=== PATIENT | female | born 1985 | race Caucasian/White ===

== ENCOUNTER 2016-12-01 15:04 | Emergency (ER) | payer OTHER ==
[~2016-12-01] VITALS: Ht 162.6 cm; Wt 79.8 kg
[~2016-12-01 15:04] MED LIST: CARA1TAB2 PO; CELE20TA PO; CIPR500T4 PO; CLON1 PO; LORT5TAB PO; METR-1 PO; OMEP20CA5 PO
[2016-12-01 15:26] VITALS: BP 117/76; PULSE 108; RESP 16; TEMP 99.1; O2SAT 97
[2016-12-01] MEDS ORDERED: XANA1TAB2 PO (15:56)
[2016-12-01] MEDS ORDERED: METH5TAB PO (15:56)
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
[2016-12-01 16:43] LABS: AUTOMATED NEUTROPHIL # 3.6 TH/MM3 (1.8-7.7); BASOPHIL % 0.4 % (0.0-2.0); EOSINOPHIL # 0.1 TH/MM3 (0-0.4); EOSINOPHIL % 1.1 % (0.0-4.0); HEMATOCRIT 32.8 % (35.0-46.0); HEMO FLAGS DIFF FINAL; LYMPH % 27.6 % (9.0-44.0); LYMPHOCYTE # 1.5 TH/MM3 (1.0-4.8); MEAN CELL VOLUME 88.1 FL (80.0-100.0); MEAN CORPUSCULAR HEMOGLOBIN 30.4 PG (27.0-34.0); MEAN CORPUSCULAR HGB CONC 34.5 % (32.0-36.0); MONO % 6.2 % (0.0-8.0); NEUT % 64.7 % (16.0-70.0); PLATELET COUNT 237 TH/MM3 (150-450); RED BLOOD COUNT 3.73 MIL/MM3 (4.00-5.30); RED CELL DISTRIBUTION WIDTH 11.9 % (11.6-17.2); WHITE BLOOD COUNT 5.5 TH/MM3 (4.0-11.0)
[2016-12-01 16:48] LABS: BLOOD, URINE NEG (NEG); GLUCOSE,URINE NEG (NEG); KETONE, URINE NEG (NEG); NITRITE,URINE NEG (NEG)
[2016-12-01 16:56] LABS: COMMENT (UR) CULT NOT INDICATED; CULTURE IF INDICATED CULT NOT INDICATED; URINE COLOR YELLOW (YELLW/STRAW); WBC, URINE 0-2 /hpf (0-5)
[2016-12-01 17:15] LABS: BETA HCG QUANT 29178 MIU/ML (0-5)
[2016-12-01 17:16] VITALS: BP 136/87
== END 2016-12-01 17:18 | disposition home or self-care (01) ==
LOC: PHED 15:04
DX: O26.892 Other specified pregnancy related conditions, second trimester (principal); R10.30 Lower abdominal pain, unspecified; Z86.59 Personal history of other mental and behavioral disorders; Z87.39 Personal history of other diseases of the musculoskeletal system and connective tissue; Z3A.16 16 weeks gestation of pregnancy
CPT/HCPCS: 81001; 84702; 85025; 99284

== ENCOUNTER → 2017-02-15 | Outpatient (CLI) | payer MEDICAID ==
[~2017-02-15] MED LIST changes: +ACYC-101 PO; -CARA1TAB2 PO; -CELE20TA PO; -CIPR500T4 PO; -CLON1 PO; -LORT5TAB PO; -METR-1 PO; -OMEP20CA5 PO; +XANA1TAB2 PO
== END ==
LOC: HPND 11:59
PROVIDERS: ATTEND Obstetrics & Gynecology
DX: O34.592 Maternal care for other abnormalities of gravid uterus, second trimester (principal); O99.342 Other mental disorders complicating pregnancy, second trimester; O99.212 Obesity complicating pregnancy, second trimester; E66.9 Obesity, unspecified; O09.32 Supervision of pregnancy with insufficient antenatal care, second trimester; O43.192 Other malformation of placenta, second trimester; Z68.30 Body mass index [BMI] 30.0-30.9, adult
CPT/HCPCS: 76816

== ENCOUNTER 2017-04-20 11:05 | Inpatient (IN) | payer MEDICAID ==
[~2017-04-20] VITALS: Ht 162.6 cm; Wt 86.2 kg
[2017-04-20] VITALS (38 sets, daily range): BP systolic 94–164; BP diastolic 50–107; PULSE 66–131; RESP 13–18; TEMP 97.9–99.6
[~2017-04-20 11:05] MED LIST changes: +PREN1TAB63; -XANA1TAB2 PO
[2017-04-20] MEDS ORDERED: LACTATED RINGER'S 1000 ML INJ 1,000 ML IV SCH (12:21)
[2017-04-20] MEDS ORDERED: ONDANSETRON HCL 4 MG/2 ML VIAL IV PUSH PRN (12:30)
[2017-04-20] MEDS ORDERED: ACETAMINOPHEN 325 MG TAB PO PRN (12:30)
[2017-04-20] MEDS ORDERED: CALCIUM GLUCONATE 10% 1 GM/10 ML VIAL IV PUSH PRN (12:30)
[2017-04-20] MEDS ORDERED: LORazepam 2 MG/ML VIAL IM PRN (12:30)
[2017-04-20] MEDS ORDERED: OXYTOCIN 30 UNITS-500ML PREMIX 500 ML IV SCH (12:30)
[2017-04-20] MEDS ORDERED: SODIUM CHLORIDE 0.9% FLUSH 10 ML FLUSH IV FLUSH PRN (12:30)
[2017-04-20] MEDS ORDERED: CITRIC ACID-SODIUM CITRATE LIQ 30 ML UDC PO SCH (12:45)
[2017-04-20] MEDS ORDERED: SODIUM CHLORID 0.9% 500 ML INJ 500 ML IV PRN (12:45)
[2017-04-20] MEDS ORDERED: LIDOCAINE HCL 1% 50 ML VIAL INFIL PRN (12:45)
[2017-04-20] MEDS ORDERED: MINERAL OIL 10 ML VIAL TOPICAL PRN (12:45)
[2017-04-20] MEDS ORDERED: OXYTOCIN 30 UNITS-500ML PREMIX 500 ML IV ONE (12:45)
[2017-04-20] MEDS ORDERED: LIDOCAINE HCL 1% 50 ML VIAL I-DERMAL PRN (12:45)
[2017-04-20] MEDS ORDERED: PENICILLIN G POTASSIUM INJ 5,000,000 UNITS in SODIUM CHLORIDE 0.9% INJ 100 ML IV SCH (13:00)
[2017-04-20] MEDS ORDERED: LACTATED RINGER'S 1000 ML INJ 1,000 ML IV PRN (13:00)
[2017-04-20] MEDS ORDERED: SODIUM CHLOR 0.9% 1000 ML INJ 1,000 ML IV PRN (13:01)
--- NOTE | 2017-04-20 13:04 | PD ---
HPI Chief Complaint Vaginal bleeding Travel History International Travel<30 Days: No Contact w/Intl Traveler<30Days: No Known Affected Area: No History of Present Illness HPI Patient is a 32 y/o female @35/2 weeks who presents with vaginal bleeding since this AM. States she felt that her water broke yesterday, has noted blood and continued leakage of fluid this morning. Blood is enough to fill a thin pad and noted it in the toilet and on wiping. Endorses movement, tanner every 3 minutes with only slight pain. Is RH positive. No hx of bleeding with , no recent trauma or intercourse. History Past Medical History Narrative Medical anxiety - takes 0.5 clonipine Obstetric History Obstetric History 2004 female born 4lbs @37 weeks via vaginal delivery. No complications 2 Abortions induced at 5 weeks Family History Family History: Negative Social History Alcohol Use: No Tobacco Use: No Substance Abuse: No Allergies-Medications (Allergen,Severity, Reaction): Coded Allergies: No Known Allergies (Verified , 04/18/17) Home Meds Active Scripts Acyclovir (Zovirax) 800 Mg Tab, 800 MG PO DAILY for Mgmt Viral Infection, #90 TAB 3 Refills Prov:Adalberto Fernandez MD 01/25/17 Reported Medications Multivit-Min W/Fe-FA ( Vitamins 0.8 mg) 1 Tab Tab 04/18/17 Physical Exam Narrative GENERAL: Well-nourished, well-developed patient. SKIN: Warm and dry. HEAD: Normocephalic and atraumatic. EYES: No scleral icterus. No injection or drainage. ENT: deferred CARDIOVASCULAR: Regular rate and rhythm without murmurs, gallops, or rubs. RESPIRATORY: Breath sounds equal bilaterally. No accessory muscle use. ABDOMEN/GI: Abdomen soft, non-tender Gravid to 35 weeks size GENITOURINARY: External Genitalia: intact and normal in appearance Cervix: midline Dilatation: 0 Effacement: 0 Membranes: ruptured Uterine Contractions: 1-3 min, mild FHT's: Category: 1 Baseline: 145 Reactive: yes Variability: moderate Decels: variable EXTREMITIES: No cyanosis or edema. NEUROLOGICAL: Awake and alert. Motor and sensory grossly within normal limits. Data Data Orders Orders Admit To Inpatient (04/20/17 ) Vital Signs (Adult) Q4H (04/20/17 12:21) Activity Bed Rest (04/20/17 12:21) Heart (04/20/17 12:21) Diet Regular Basic (04/20/17 Lunch) Lactated Ringer's 1000 Ml Inj (Lr 1000 M (04/20/17 12:21) Sodium Chloride 0.9% Flush (Ns Flush) (04/20/17 12:30) Sodium Chloride 0.9% Flush (Ns Flush) (04/20/17 21:00) Betamethasone Inj (Celestone Soluspan In (04/20/17 12:30) Penicillin G Potassium Inj (Pfizerpen-G (04/20/17 12:30) Penicillin G Potassium Inj (Pfizerpen-G (04/20/17 16:30) Calcium Gluconate Inj (Calcium Gluconate (04/20/17 12:30) Acetaminophen (Tylenol) (04/20/17 12:30) Ondansetron Inj (Zofran Inj) (04/20/17 12:30) Group B Beta Strep Scrn (Gbs) (04/20/17 12:21) Urinalysis - C+S If Indicated (04/20/17 12:21) Lorazepam Inj (Ativan Inj) (04/20/17 12:30) ^ Non Stress Test (04/20/17 12:24) Response To Medication .Post New Med Administration, Reaction (04/20/17 12:24) ^ Discontinue Medication (04/20/17 12:24) Oxytocin 30 Units-500ml Premix (Pitocin (04/20/17 12:30) Ob (2e) Additional Admit Info (04/20/17 12:37) Ob/Psych Drug Screen, Urine (04/20/17 12:40) Code Status (04/20/17 12:41) Vital Signs (Adult) .Per protocol (04/20/17 12:41) Activity Oob Ad Sherrie (04/20/17 12:41) Heart (04/20/17 12:41) Amnioinfusion (04/20/17 12:41) Urinary Catheter Management .ONCE (04/20/17 12:41) Lactated Ringer's 1000 Ml Inj (Lr 1000 M (04/20/17 12:41) Lactated Ringer's 1000 Ml Inj (Lr 1000 M (04/20/17 12:41) Sodium Chlorid 0.9% 500 Ml Inj (Ns 500 M (04/20/17 12:45) Sodium Chlor 0.9% 1000 Ml Inj (Ns 1000 M (04/20/17 13:01) Lidocaine 1% Inj (50 Ml) (Xylocaine 1% I (04/20/17 12:45) Citric Acid-Sodium Citrate Liq (Bicitra (04/20/17 12:45) Ondansetron Inj (Zofran Inj) (04/20/17 12:45) Fentanyl Inj (Fentanyl Inj) (04/20/17 12:45) Fentanyl Inj (Fentanyl Inj) (04/20/17 12:45) Complete Blood Count With Diff (04/20/17 12:41) Hold Clot (04/20/17 12:41) Abo/Rh Blood Type (04/20/17 12:41) Resp Oxygen Non Rebreathe Mask (04/20/17 ) ^ Epidural / Intrathecal Infus (04/20/17 12:41) Oxytocin 30 Units-500ml Premix (Pitocin (04/20/17 12:45) Lidocaine 1% Inj (50 Ml) (Xylocaine 1% I (04/20/17 12:45) Light Mineral Oil (Muri-Lube Oil) (04/20/17 12:45) MDM Interpretation(s) Patient is a 32 y/o @ 35/2 weeks admitted for PPROM and suspected marginal abruption. Plan -IVF -administer penicillin prophy -betamethasone x2 for lung maturity -oxytocin for labor induction - anticipate vaginal delivery - continue to monitor SWDW Dr. Anderson Xiong,Katiana Corley MD R1 Apr 20, 2017 13:04
[2017-04-20] MEDS ORDERED: BETAMETHASONE SOD PHOS/ACETATE SUSP 30 MG/5 ML VIAL IM SCH (13:30)
[2017-04-20] MEDS ORDERED: CLON.5 PO (13:45)
[2017-04-20] MEDS: LACTATED RINGER'S 1000 ML INJ 1,000 ML IV SCH ×3 (14:00→21:00)
[2017-04-20 15:08] LABS: AUTOMATED NEUTROPHIL # 6.4 TH/MM3 (1.8-7.7); BASOPHIL % 0.3 % (0.0-2.0); EOSINOPHIL # 0.1 TH/MM3 (0-0.4); EOSINOPHIL % 0.6 % (0.0-4.0); HEMATOCRIT 41.5 % (35.0-46.0); HEMO FLAGS DIFF FINAL; LYMPHOCYTE # 2.1 TH/MM3 (1.0-4.8); MEAN CELL VOLUME 88.7 FL (80.0-100.0); MEAN CORPUSCULAR HEMOGLOBIN 29.7 PG (27.0-34.0); MEAN CORPUSCULAR HGB CONC 33.5 % (32.0-36.0); MONO % 5.9 % (0.0-8.0); NEUT % 70.2 % (16.0-70.0); PLATELET COUNT 240 TH/MM3 (150-450); RED BLOOD COUNT 4.68 MIL/MM3 (4.00-5.30); RED CELL DISTRIBUTION WIDTH 12.9 % (11.6-17.2)
[2017-04-20 15:20] LABS: BLOOD, URINE MOD (NEG); COMMENT (UR) CULTURE INDICATED; CULTURE IF INDICATED CULTURE INDICATED; GLUCOSE,URINE NEG (NEG); KETONE, URINE NEG (NEG); NITRITE,URINE NEG (NEG); SQUAMOUS EPITHELIAL CELL URINE 4 /hpf (0-5); URINE COLOR YELLOW (YELLW/STRAW)
[2017-04-20] MEDS: PENICILLIN G POTASSIUM INJ 2,500,000 UNITS in SODIUM CHLORIDE 0.9% INJ 100 ML IV SCH ×2 (18:00→22:10)
[2017-04-20] MEDS: ONDANSETRON HCL 4 MG/2 ML VIAL IV PUSH PRN (20:00)
[2017-04-20] MEDS ORDERED: SODIUM CHLORIDE 0.9% FLUSH 10 ML FLUSH IV FLUSH SCH (21:00)
[2017-04-21] VITALS (44 sets, daily range): BP systolic 99–144; BP diastolic 54–86; PULSE 71–145; RESP 16–18; TEMP 97.5–98.7; O2SAT 100
[2017-04-21] MEDS: ONDANSETRON HCL 4 MG/2 ML VIAL IV PUSH PRN (02:06)
[2017-04-21] MEDS: PENICILLIN G POTASSIUM INJ 2,500,000 UNITS in SODIUM CHLORIDE 0.9% INJ 100 ML IV SCH ×2 (02:07→06:19)
[2017-04-21] MEDS: LACTATED RINGER'S 1000 ML INJ 1,000 ML IV SCH (02:07)
[2017-04-21] MEDS ORDERED: fentaNYL 2MCG-BUPIV 0.125% INJ 100 ML ONE (08:28)
[2017-04-21] MEDS ORDERED: EPIDURAL-NO SYSTEMIC NARCOTICS PRN (09:55)
[2017-04-21 10:55] LABS: BLOOD GAS BASE EXCESS -2.1 mmol/L (-2-2); BLOOD GAS O2 HGB SATURATION 9 % (90-100); CORD BLOOD GAS HCO3 24 mmol/L (21-29); CORD BLOOD GAS PCO2 51 mmHG (34-78); CORD BLOOD GAS PH 7.29 (7.14-7.42); CORD BLOOD GAS PO2 10 mmHG (3.0-40.0)
[2017-04-21 10:56] LABS: DRAW SITE CORD BLOOD; STAT NO
[2017-04-21] MEDS ORDERED: ONDANSETRON HCL 4 MG/2 ML VIAL IV PUSH PRN (11:15)
[2017-04-21] MEDS ORDERED: OXYTOCIN 30 UNITS-500ML PREMIX 500 ML IV ONE (11:15)
[2017-04-21] MEDS ORDERED: oxyCODONE/ACETAMINOPHEN 5 MG/325 MG TAB PO PRN (11:15)
[2017-04-21] MEDS ORDERED: SODIUM CHLORIDE 0.9% FLUSH 10 ML FLUSH IV FLUSH PRN (11:15)
[2017-04-21] MEDS ORDERED: ZOLPIDEM TARTRATE 5 MG TAB PO PRN (11:15)
[2017-04-21] MEDS ORDERED: LACTATED RINGER'S 1,000 ML BAG IV ONE (11:37)
[2017-04-21] MEDS ORDERED: PHENYLEPH/NS 1000 MCG/10 ML SYR IV ONE (12:00)
[2017-04-21] MEDS ORDERED: ONDANSETRON HCL 4 MG/2 ML VIAL IV PUSH ONE ×2 (12:00)
[2017-04-21] MEDS ORDERED: LIDOCAINE 2%/EPINEPHrine PF 1:200,000 20ML SDV OTHER ONE (12:00)
[2017-04-21] MEDS ORDERED: LACTATED RINGER'S 1000 ML INJ 1,000 ML IV ONE (12:00)
[2017-04-21] MEDS ORDERED: ceFAZolin INJ 1,000 MG VIAL IV ONE (12:00)
[2017-04-21] MEDS ORDERED: DEXAMETHASONE SOD PHOS 4 MG/ML VIAL IV ONE (12:00)
[2017-04-21] MEDS ORDERED: OXYTOCIN 10 UNIT/ML AMP IV ONE (12:00)
[2017-04-21] MEDS ORDERED: MORPHINE SULFATE PF 5 MG/10 ML VIAL ONE (12:00)
[2017-04-21] MEDS ORDERED: SODIUM CHLORIDE 0.9% 20 ML VIAL IV ONE (12:00)
[2017-04-21] MEDS ORDERED: EPIDURAL-NALOXONE HCL 0.4 MG/ML AMP IV PUSH PRN (13:00)
[2017-04-21] MEDS ORDERED: EPIDURAL-DIPHENHYDRAMINE HCL 50 MG CAP PO PRN (13:00)
[2017-04-21] MEDS ORDERED: EPIDURAL-DO NOT ADMINISTER ANTICOAGULANTS PRN (13:00)
[2017-04-21] MEDS ORDERED: EPIDURAL-DIPHENHYDRAMINE HCL 50 MG/ML VIAL IV PUSH PRN (13:00)
[2017-04-21] MEDS ORDERED: ePHEDrine/NS 25 MG/5 ML SYR IV PUSH PRN (14:00)
[2017-04-21] MEDS ORDERED: NO SYSTEM NARCOTICS PRN (14:00)
[2017-04-21] MEDS ORDERED: DO NOT ADMINISTER ANTICOAGULANTS PRN (14:00)
[2017-04-21] MEDS ORDERED: fentaNYL 2MCG-BUPIV 0.125% 100 ML EPIDURAL SCH (14:00)
[2017-04-21] MEDS ORDERED: LACTATED RINGER'S 1000 ML INJ 1,000 ML IV SCH (16:02)
[2017-04-21] MEDS ORDERED: KETOROLAC TROMETHAMINE 30 MG/ML (IVP) VIAL IV PUSH ONE (17:15)
[2017-04-21] MEDS: ACETAMINOPHEN 1000 MG/100 ML 100 ML IV SCH (17:37)
[2017-04-21] MEDS ORDERED: SODIUM CHLORIDE 0.9% FLUSH 10 ML FLUSH IV FLUSH SCH (21:00)
[2017-04-21] MEDS ORDERED: OXYTOCIN 30 UNITS-500ML PREMIX 500 ML IV PRN (21:15)
[2017-04-21] MEDS: oxyCODONE/ACETAMINOPHEN 5 MG/325 MG TAB PO PRN (22:48)
[2017-04-22] VITALS: BP 106/69; PULSE 79; RESP 16; TEMP 98.4
[2017-04-22] MEDS: IBUPROFEN 600 MG TAB PO PRN ×4 (02:25→18:32)
[2017-04-22] MEDS: oxyCODONE/ACETAMINOPHEN 5 MG/325 MG TAB PO PRN ×4 (02:25→18:33)
[2017-04-22 04:00] VITALS: BP 95/50; PULSE 74; RESP 16; TEMP 98.2
[2017-04-22 06:11] LABS: AUTOMATED NEUTROPHIL # 7.9 TH/MM3 (1.8-7.7); BASOPHIL % 0.1 % (0.0-2.0); EOSINOPHIL % 0.1 % (0.0-4.0); HEMATOCRIT 28.4 % (35.0-46.0); HEMO FLAGS DIFF FINAL; LYMPH % 21.7 % (9.0-44.0); LYMPHOCYTE # 2.5 TH/MM3 (1.0-4.8); MEAN CELL VOLUME 89.7 FL (80.0-100.0); MEAN CORPUSCULAR HEMOGLOBIN 29.9 PG (27.0-34.0); MEAN CORPUSCULAR HGB CONC 33.3 % (32.0-36.0); MONO % 7.7 % (0.0-8.0); NEUT % 70.4 % (16.0-70.0); PLATELET COUNT 199 TH/MM3 (150-450); RED BLOOD COUNT 3.17 MIL/MM3 (4.00-5.30); RED CELL DISTRIBUTION WIDTH 13.1 % (11.6-17.2); WHITE BLOOD COUNT 11.3 TH/MM3 (4.0-11.0)
[2017-04-22] MEDS: DOCUSATE SODIUM 50 MG/SENNA 8.6 MG TAB PO PRN (08:17)
[2017-04-22 08:18] VITALS: BP 114/74; PULSE 68; RESP 16; TEMP 97.7
[2017-04-22] MEDS: clonazePAM 0.5 MG TAB PO PRN (10:49)
--- NOTE | 2017-04-22 11:28 | HHI.OB ---
Subjective Remarks 32 year old female s/p C/S at 35/4 wks gestation, POD 1. AFVSS. Patient reports she is feeling well. Bleeding is decreasing and pain is well- controlled. She is formula feeding and bonding well with baby. Ambulating without difficulties. She is tolerating a diet without nausea or vomiting. She has not had a bowel movement. She has not passed gas. Denies chest pain, dysuria , shortness of breath, or calf pain. (Spencer East MD R2) Remarks Patient seen and evaluated with resident under direct supervision, agree with assessment and plan. (Brian Early MD) Objective Vitals/I&O Vital Signs Date Time Temp Pulse Resp B/P (MAP) Pulse Ox O2 Delivery O2 Flow Rate FiO2 04/22/17 08:18 97.7 68 16 114/74 (87) 04/22/17 04:00 95/50 (65) 04/22/17 04:00 98.2 74 16 04/22/17 00:00 98.4 79 16 106/69 (81) 04/21/17 19:40 98.0 80 16 99/66 (77) 04/21/17 17:45 16 04/21/17 17:05 18 04/21/17 16:05 18 04/21/17 14:30 98.0 89 18 115/61 (79) 04/21/17 11:29 102 18 114/66 (82) 100 (Spencer East MD R2) Result Diagram: 04/22/17 0546 Objective Remarks GENERAL: Well-nourished, well-developed patient. CARDIOVASCULAR: Regular rate and rhythm without murmurs, gallops, or rubs. RESPIRATORY: Breath sounds equal bilaterally. No accessory muscle use. ABDOMEN/GI: Abdomen soft, non-tender, bowel sounds present. Incision: Clean and dry; binder in place (has not showered yet) Fundus: Firm, non-tender at umbilicus. GENITOURINARY: Light to moderate bleeding. EXTREMITIES: No cyanosis or edema, non-tender, without signs of DVT. Medications and IVs Current Medications Medications (Trade) Dose Ordered Sig/Kvng Route Start Time Stop Time Status Last Admin Lactated Ringer's 1,000 ml @ 100 mls/hr Q10H IV 04/21/17 16:02 04/22/17 12:01 04/21/17 17:38 Oxytocin 500 ml @ 100 mls/hr UNSCH X1 PRN IV 04/21/17 21:15 04/22/17 21:14 (NS Flush) 2 ml BID IV FLUSH 04/21/17 21:00 (NS Flush) 2 ml UNSCH PRN IV FLUSH 04/21/17 11:15 (Motrin) 600 mg Q6H PRN PO 04/21/17 11:15 04/22/17 08:17 (Percocet 5-325 Mg) 1 tab Q4H PRN PO 04/21/17 11:15 (Percocet 5-325 Mg) 2 tab Q4H PRN PO 04/21/17 11:15 04/22/17 08:17 (Ashanti-Colace) 2 tab Q12H PRN PO 04/21/17 11:15 04/22/17 08:17 (Ambien) 5 mg HS PRN PO 04/21/17 11:15 (M-M-R Ii Inj) 0.5 ml ONCE ONCE SQ 04/22/17 16:00 04/22/17 16:01 (Boostrix Inj) 0.5 ml ONCE ONCE IM 04/22/17 16:00 04/22/17 16:01 (Zofran Inj) 4 mg Q6H PRN IV PUSH 04/21/17 11:15 (Narcan Inj) 0.4 mg UNSCH PRN IV PUSH 04/21/17 13:00 04/22/17 12:59 (Benadryl Inj) 25 mg Q6H PRN IV PUSH 04/21/17 13:00 04/22/17 12:59 (Benadryl) 50 mg Q6H PRN PO 04/21/17 13:00 04/22/17 12:59 Miscellaneous Information ALL NURSING DEPARTMENTS UNSCH PRN .XX 04/21/17 13:00 04/22/17 12:59 Miscellaneous Information No systemic narcotics to be given except... UNSCH PRN .XX 04/21/17 14:00 04/22/17 13:59 Miscellaneous Information DO NOT ADMINISTER ANY ANTICOAGUL... UNSCH PRN .XX 04/21/17 14:00 04/22/17 13:59 (ePHEDrine/NS 25 MG/5 ML SYR) 10 mg UNSCH PRN IV PUSH 04/21/17 14:00 04/22/17 13:59 Fentanyl/ Bupivacaine HCl 100 ml @ 12 mls/hr TITRATE EPIDURAL 04/21/17 14:00 Acetaminophen 100 ml @ 400 mls/hr Q6H IV 04/21/17 18:00 04/22/17 12:14 04/21/17 17:37 (Flu (Quadrivalent) Vaccine Inj) 0.5 ml ONCE ONCE IM 04/23/17 10:00 04/23/17 10:01 (KlonoPIN) 0.5 mg Q12HR PRN PO 04/22/17 09:45 04/22/17 10:49 (Spencer East MD R2) Assessment/Plan Assessment and Plan 32 yo female s/p C/S, POD 1 - AFVSS - Continue routine care - Motrin and Percocet PRN pain - Encourage OOB - Pelvic rest x 6 wks. Will need 1 week incision check. - Contraception: Undecided - Continue home Klonopin 0.5 mg BID PRN for anxiety - Anticipate D/C 04/23 (Spencer East MD R2) Spencer East MD R2 Apr 22, 2017 11:28 Brian Early MD Apr 28, 2017 10:11
--- NOTE | 2017-04-22 11:55 | MP ---
cc: KENYA BARRON MD DATE OF SURGERY: 04/21/2017 PREOPERATIVE DIAGNOSIS: 1. A 35 week intrauterine with premature rupture of membranes, double footling breach. 2. The patient desired sterilization. POSTOPERATIVE DIAGNOSIS: 1. A 35 week intrauterine with premature rupture of membranes, double footling breach. 2. The patient desired sterilization. PROCEDURE PERFORMED: 1. Primary low transverse section. 2. [place] bilateral tubal ligation. SURGEON: Kenya Barron MD ANESTHESIA Epidural. PRE-OP NOTE The patient is a 32 year-old white female, G4, P1, 35 weeks, premature rupture of membranes. Cervix was closed on admission. She was tanner with augmentation through the evening and approximately six hours after initial evaluation, the cervix was open 2 cm. At that time I could feel cervical os. It is noted now to be footling breach and she was taken to surgery for delivery. PROCEDURE The patient was taken to the operating room and placed in supine position on the operating table. After adequate epidural anesthesia was administered she was prepped and draped for abdominal surgery. Pfannenstiel incision was made and carried to the fascia sharply. The fascia dissected off the rectus muscle and the rectus split in the midline. The peritoneal cavity was entered sharply. The bladder blade was placed in the lower edge of the incision. The visceral peritoneum was then reflected off the lower uterine segment and placed on the bladder blade. Transverse hysterotomy was made and extended bluntly bilaterally. Clear fluid noted. A male infant was delivered at 9:51 a.m. from a double footling breach presentation. Apgars 7 and 8, weight 2250 grams. There were no complications at delivery, cord blood obtained, cord pH obtained, all within normal limits. Placenta manually extracted, sent to pathology. The uterus was exteriorized, hysterotomy closed with a running layer of 0 chromic, followed by imbricating suture of same. The bladder reapproximated using a running stick tie of 2-0 Vicryl. The uterus elevated and blood suctioned from the cul-de-sac and gutters. The patient desired sterilization. Tubal papers had been signed, so a tubal ligation was performed. The left tube was elevated and a Sparks clamp used. The hemostat passed through the mesosalpinx and two free tie sutures brought through that window and tied up to 4.5. The intervening segment excised out. The same was performed on the opposite side without difficulty. Hemostasis was achieved. The blood was suctioned from the cul-de-sac and gutters and the uterus replaced in the peritoneal cavity. The parietal peritoneum was closed in a running layer of 2-0 Vicryl. The rectus muscle reapproximated with stick ties of 0 Vicryl. The fascia then closed with running layer of 0 Vicryl. Subcutaneous tissue was reapproximated with 3-0 plain catgut suture and a running suture. The skin closed with subcuticular 3-0 Monocryl and a large pressure dressing applied. Estimated blood loss 500 cc. There were no complications. Sponge, needle count correct times two. The patient was taken to recovery in stable condition. MD ABDULAZIZ Napier/KIMBERLEY /11:05 AM /11:34 AM
[2017-04-22] MEDS: ACETAMINOPHEN 1000 MG/100 ML 100 ML IV SCH ×2 (12:00)
[2017-04-22] MEDS ORDERED: DIPHTH/TETANUS/ACEL PERTUSSIS (BOOSTER) 0.5 ML VIAL/PFS IM ONE (16:00)
[2017-04-22] MEDS ORDERED: MEASLES, MUMPS, RUBELLA VACCINE 0.5 ML VIAL SQ ONE (16:00)
[2017-04-22] MEDS ORDERED: BISACODYL 10 MG SUPP RECTAL ONE (19:30)
[2017-04-22 21:10] VITALS: BP 141/88; PULSE 20; PULSE 84; RESP 20; TEMP 99.1
[2017-04-23] MEDS: DOCUSATE SODIUM 50 MG/SENNA 8.6 MG TAB PO PRN (00:45)
[2017-04-23] MEDS: IBUPROFEN 600 MG TAB PO PRN ×3 (00:46→18:48)
[2017-04-23] MEDS: clonazePAM 0.5 MG TAB PO PRN ×2 (00:46→16:39)
[2017-04-23] MEDS: oxyCODONE/ACETAMINOPHEN 5 MG/325 MG TAB PO PRN ×4 (00:46→18:48)
[2017-04-23] MEDS ORDERED: PROMETHAZINE INJ 25 MG/ML VIAL IM PRN (08:00)
--- NOTE | 2017-04-23 08:01 | HHI.OB ---
Subjective Post Operative Day: 2 Remarks status post for footling breech at 35 weeks Patient having nausea and vomiting yesterday and early this morning, however she had a bowel movement yesterday as well She's been of ambulate a lot up to the NICU to see her And so That She May Have Overdone It Some to She's Quite Sore and Lower Abdomen Her Incision Looks Good However Objective Vitals/I&O Vital Signs Date Time Temp Pulse Resp B/P (MAP) Pulse Ox O2 Delivery O2 Flow Rate FiO2 04/22/17 21:10 84 04/22/17 21:10 99.1 20 20 141/88 (105) 04/22/17 08:18 97.7 68 16 114/74 (87) Result Diagram: 04/22/17 0546 Objective Remarks GENERAL: Well-nourished, well-developed patient. CARDIOVASCULAR: Regular rate and rhythm without murmurs, gallops, or rubs. RESPIRATORY: Breath sounds equal bilaterally. No accessory muscle use. ABDOMEN/GI: Abdomen soft, non-tender, bowel sounds diminished Incision: Clean and dry; binder in place (has not showered yet) Fundus: Firm, non-tender at umbilicus. GENITOURINARY: Light to moderate bleeding. EXTREMITIES: No cyanosis or edema, non-tender, without signs of DVT. Medications and IVs Current Medications Medications (Trade) Dose Ordered Sig/Kvng Route Start Time Stop Time Status Last Admin (NS Flush) 2 ml BID IV FLUSH 04/21/17 21:00 (NS Flush) 2 ml UNSCH PRN IV FLUSH 04/21/17 11:15 (Motrin) 600 mg Q6H PRN PO 04/21/17 11:15 04/23/17 00:46 (Percocet 5-325 Mg) 1 tab Q4H PRN PO 04/21/17 11:15 (Percocet 5-325 Mg) 2 tab Q4H PRN PO 04/21/17 11:15 04/23/17 00:46 (Ashanti-Colace) 2 tab Q12H PRN PO 04/21/17 11:15 04/23/17 00:45 (Ambien) 5 mg HS PRN PO 04/21/17 11:15 (Zofran Inj) 4 mg Q6H PRN IV PUSH 04/21/17 11:15 Fentanyl/ Bupivacaine HCl 100 ml @ 12 mls/hr TITRATE EPIDURAL 04/21/17 14:00 (Flu (Quadrivalent) Vaccine Inj) 0.5 ml ONCE ONCE IM 04/23/17 10:00 04/23/17 10:01 04/22/17 17:09 (KlonoPIN) 0.5 mg Q12HR PRN PO 04/22/17 09:45 04/23/17 00:46 Assessment/Plan Assessment and Plan 32 yo female s/p C/S, POD 2 - AFVSS Mild ileus postoperatively-provide antiemetic therapy today if she continues to vomit will need an IV to hydrate and go NPO - Continue progressive and postop care - Motrin and Percocet PRN pain - Encourage OOB - Pelvic rest x 6 wks. Will need 1 week incision check. - Contraception: Undecided - Continue home Klonopin 0.5 mg BID PRN for anxiety - Joshua Barron II, MD Apr 23, 2017 08:01
[2017-04-23 08:25] VITALS: BP 148/89; PULSE 70; RESP 18; TEMP 98.3
[2017-04-23] MEDS ORDERED: INFLUENZA VIRUS VACCINE (QUADRIVALENT) 0.5 ML SYR IM ONE (10:00)
[2017-04-23 14:27] LABS: AUTOMATED NEUTROPHIL # 8.6 TH/MM3 (1.8-7.7); BASOPHIL % 0.1 % (0.0-2.0); EOSINOPHIL % 0.4 % (0.0-4.0); HEMATOCRIT 32.2 % (35.0-46.0); HEMO FLAGS DIFF FINAL; LYMPH % 18.2 % (9.0-44.0); LYMPHOCYTE # 2.1 TH/MM3 (1.0-4.8); MEAN CELL VOLUME 88.6 FL (80.0-100.0); MEAN CORPUSCULAR HEMOGLOBIN 30.1 PG (27.0-34.0); MONO % 5.8 % (0.0-8.0); NEUT % 75.5 % (16.0-70.0); PLATELET COUNT 263 TH/MM3 (150-450); RED BLOOD COUNT 3.63 MIL/MM3 (4.00-5.30); RED CELL DISTRIBUTION WIDTH 12.8 % (11.6-17.2); WHITE BLOOD COUNT 11.4 TH/MM3 (4.0-11.0)
[2017-04-23 14:48] LABS: ALT (GPT) 14 U/L (10-53); ANION GAP 7 MEQ/L (5-15); AST (GOT) 16 U/L (15-37); BICARBONATE 25.4 MEQ/L (21.0-32.0); BLOOD UREA NITROGEN 4 MG/DL (7-18); CHLORIDE 109 MEQ/L (98-107); GLOMERULAR FILTRATION RATE 283 ML/MIN (>89); POTASSIUM 3.5 MEQ/L (3.5-5.1); SODIUM (NA) 141 MEQ/L (136-145)
[2017-04-23 14:50] LABS: ALKALINE PHOSPHATASE 82 U/L (45-117); TOTAL BILIRUBIN ADULT 0.2 MG/DL (0.2-1.0)
[2017-04-23] MEDS ORDERED: ZITH1POW PO (15:35)
[2017-04-23 20:05] VITALS: BP 138/80; PULSE 64; RESP 18; TEMP 98.4
[2017-04-24] MEDS ORDERED: SENN1TAB PO (07:16)
[2017-04-24] MEDS ORDERED: IBUP-232 PO (07:16)
[2017-04-24] MEDS ORDERED: OXYC1TAB63 PO (07:16)
[2017-04-24 07:30] VITALS: BP 157/86; PULSE 57; RESP 18; TEMP 98.5
[2017-04-24] MEDS: IBUPROFEN 600 MG TAB PO PRN (07:35)
[2017-04-24] MEDS: DOCUSATE SODIUM 50 MG/SENNA 8.6 MG TAB PO PRN (07:35)
[2017-04-24] MEDS: oxyCODONE/ACETAMINOPHEN 5 MG/325 MG TAB PO PRN ×2 (07:35→11:40)
[2017-04-24] MEDS: clonazePAM 0.5 MG TAB PO PRN (07:36)
--- NOTE | 2017-04-24 08:58 | HHI.OB ---
Subjective Post Operative Day: 3 Remarks Postoperative day number 3. AFVSS overnight. Pain controlled. Incision not draining. Decreased lochia. Denies dysuria. No breast tenderness. She is feeding the baby via breast/bottle. Appetite good. No nausea or vomiting since yesterday. Tolerated liquid diet yesterday. Will attempt regular diet today. Endorses flatus. Endorses bowel movement. Ambulating well. Denies calf pain, shortness of breath, or cough. Otherwise, she is doing well this morning and has no other complaints. (Brad Ansari MD, R2) Objective Vitals/I&O Vital Signs Date Time Temp Pulse Resp B/P (MAP) Pulse Ox O2 Delivery O2 Flow Rate FiO2 04/23/17 20:05 98.4 64 18 04/23/17 20:05 138/80 (99) (Brad Ansari MD, R2) Result Diagram: 04/23/17 1245 04/23/17 1245 Objective Remarks GENERAL: Well-nourished, well-developed patient. CARDIOVASCULAR: Regular rate and rhythm without murmurs, gallops, or rubs. RESPIRATORY: Breath sounds equal bilaterally. No accessory muscle use. ABDOMEN/GI: Abdomen soft, non-tender, bowel sounds diminished Incision: Clean and dry; binder in place (has not showered yet) Fundus: Firm, non-tender at umbilicus. GENITOURINARY: Light to moderate bleeding. EXTREMITIES: No cyanosis or edema, non-tender, without signs of DVT. Medications and IVs Current Medications Medications (Trade) Dose Ordered Sig/Kvng Route Start Time Stop Time Status Last Admin (NS Flush) 2 ml BID IV FLUSH 04/21/17 21:00 (NS Flush) 2 ml UNSCH PRN IV FLUSH 04/21/17 11:15 (Motrin) 600 mg Q6H PRN PO 04/21/17 11:15 04/24/17 07:35 (Percocet 5-325 Mg) 1 tab Q4H PRN PO 04/21/17 11:15 (Percocet 5-325 Mg) 2 tab Q4H PRN PO 04/21/17 11:15 04/24/17 07:35 (Ashanti-Colace) 2 tab Q12H PRN PO 04/21/17 11:15 04/24/17 07:35 (Ambien) 5 mg HS PRN PO 04/21/17 11:15 (Zofran Inj) 4 mg Q6H PRN IV PUSH 04/21/17 11:15 Fentanyl/ Bupivacaine HCl 100 ml @ 12 mls/hr TITRATE EPIDURAL 04/21/17 14:00 (KlonoPIN) 0.5 mg Q12HR PRN PO 04/22/17 09:45 04/24/17 07:36 (Phenergan Inj) 25 mg Q6H PRN IM 04/23/17 08:00 04/23/17 08:24 (Brad Ansari MD, R2) Assessment/Plan Assessment and Plan 32 yo female s/p C/S, POD 3 - AFVSS - Mild ileus postoperatively-improved today. No vomiting after anti-nausea yesterday. Monitor PO intake today. - Continue progressive and postop care - Motrin and Percocet PRN pain - Encourage OOB - Pelvic rest x 6 wks. Will need 1 week incision check. - Contraception: Undecided - Continue home Klonopin 0.5 mg BID PRN for anxiety - D/c today if tolerating PO wdw OB attending (Brad Ansari MD, R2) Attending Attestation POD #3 s/p c/s +BM and flatus tolerating a regular diet and hydrating well d/c home with precautions F/u for one week incision check patient seen and examined. d/w Dr. Ansari and Dr. Xiong (Annetta Neal MD) Brad Ansari MD, R2 Apr 24, 2017 08:58 Annetta Neal MD Apr 26, 2017 08:14
[2017-04-24 09:00] VITALS: BP 146/75; PULSE 57
--- NOTE | 2017-04-24 09:22 | HHI.DCPOC ---
Discharge Care Plan Diagnosis: (1) Report Symptoms to Your Doctor -Temperature above 100.5 degrees -Redness, of incision or excessive or foul smelling drainage -Unusual pain or calf pain -Increased vaginal bleeding -Painful or difficulty urinating -Feelings of extreme sadness or anxiety after 2 weeks Goals to Promote Your Health * To prevent worsening of your condition and complications * To maintain your health at the optimal level Directions to Meet Your Goals Take your medications as prescribed Follow your dietary instruction Follow activity as directed Ensure plenty of rest for recovery Drink fluids for hydration Keep your appointments as scheduled Take your immunizations and boosters as scheduled If your symptoms worsen call your PCP, if no PCP go to Urgent Care Center or Emergency Room Smoking is Dangerous to Your Health. Avoid second hand smoke Call the 24-hour crisis hotline for domestic abuse at Katiana Xiong MD R1 Apr 24, 2017 09:22 Annetta Neal MD Apr 26, 2017 08:10
[2017-04-25 13:28] LABS: PHENCYCLIDINE URINE NEG (NEG)
[2017-04-25 13:30] LABS: BATH SALTS (MDPV) UR NEG (NEG); ECSTASY (MDMA) UR NEG (NEG); GABAPENTIN UR NEG (NEG); HEROIN (6-ACETYLMORPHINE) UR NEG (NEG); K2 SPICE UR NEG (NEG); OBMETHADONE UR NEG (NEG)
[2017-04-25 13:31] LABS: HYDROMORPHONE U POS (NEG)
[2017-05-08] MEDS ORDERED: CEFT250I IM (09:42)
== END 2017-04-24 12:13 | disposition home or self-care (01) | DRG 765 ==
LOC: HOBED 11:05 → HNUR 12:45 → H2EB 12:50 → H1EA 04-21 12:57
PROVIDERS: ADMIT Obstetrics & Gynecology Maternal & Fetal Medicine; ATTEND Obstetrics & Gynecology Maternal & Fetal Medicine
PROC: 10D00Z1 Extraction of Products of Conception, Low, Open Approach (ICD-10-PCS; principal; 2017-04-22)
PROC: 0UB70ZZ Excision of Bilateral Fallopian Tubes, Open Approach (ICD-10-PCS; 2017-04-22)
DX: O42.913 Preterm premature rupture of membranes, unspecified as to length of time between rupture and onset of labor, third trimester (principal); O60.14X0 Preterm labor third trimester with preterm delivery third trimester, not applicable or unspecified; K56.7 Ileus, unspecified; O75.4 Other complications of obstetric surgery and procedures; O99.344 Other mental disorders complicating childbirth; F41.9 Anxiety disorder, unspecified; O32.8XX0 Maternal care for other malpresentation of fetus, not applicable or unspecified; Z37.0 Single live birth; Z3A.35 35 weeks gestation of pregnancy; Z30.2 Encounter for sterilization; Z23 Encounter for immunization
CPT/HCPCS: 59025; 80053; 80307; 81001; 82805; 84112; 85025; 86900; 86901; 87086; 87150; 88302; 88307; 90686; 90715; G0481; J0131; J0690; J0702; J1100; J1885; J2274; J2370; J2405; J2540; J2550; J2590; J3010; J7120; Q2038

== ENCOUNTER 2017-04-28 15:46 | Emergency (ER) | payer MEDICAID ==
[~2017-04-28] VITALS: Ht 165.1 cm; Wt 82.0 kg
[~2017-04-28 15:46] MED LIST changes: -ACYC-101 PO; +CLON.5 PO; +IBUP-232 PO; +OXYC1TAB63 PO; -PREN1TAB63; +SENN1TAB PO
[2017-04-28 16:24] VITALS: BP 129/90; PULSE 78; RESP 14; TEMP 98.7; O2SAT 99
[2017-04-28] MEDS ORDERED: ONDANSETRON HCL 4 MG/2 ML VIAL IV PUSH ONE (16:30)
[2017-04-28] MEDS ORDERED: LIDOCAINE VISCOUS 2% SOLN 15 ML UDC PO ONE (16:30)
[2017-04-28] MEDS ORDERED: SODIUM CHLORID 0.9% 500 ML INJ 500 ML IV ONE (16:30)
[2017-04-28] MEDS ORDERED: ALUMINUM/MAGNESIUM/SIMETH 30 ML CUP PO ONE (16:30)
[2017-04-28] MEDS ORDERED: SODIUM CHLORIDE 0.9% FLUSH 10 ML FLUSH IVF PRN (16:30)
[2017-04-28 16:45] VITALS: BP_SYST 169; BP_SYST 174; BP_DIAS 88; BP_DIAS 96; PULSE 66; RESP 17; O2SAT 100
[2017-04-28] MEDS ORDERED: PROMETHAZINE INJ 25 MG/ML VIAL IM ONE (16:45)
[2017-04-28] MEDS ORDERED: SODIUM CHLOR 0.9% 1000 ML INJ 1,000 ML IV ONE (16:45)
--- NOTE | 2017-04-28 17:12 | RADRPT ---
EXAM DATE/TIME: 04/28/2017 16:55 [place] COMPARISON: No previous studies available for comparison. INDICATIONS : Chest pain. MEDICAL HISTORY : None. SURGICAL HISTORY : None. ENCOUNTER: Initial ACUITY: 1 day PAIN SCORE: 5/10 LOCATION: Bilateral chest FINDINGS: A single view of the chest demonstrates the lungs to be symmetrically aerated without evidence of mas s, infiltrate or effusion. The cardiomediastinal contours are unremarkable. Osseous structures are intact. CONCLUSION: No acute disease. Keith Mcfarland MD on April 28, 2017 at 17:10 Board Certified Radiologist. This report was verified electronically.
[2017-04-28 17:42] LABS: AUTOMATED NEUTROPHIL # 6.1 TH/MM3 (1.8-7.7); BASOPHIL % 0.4 % (0.0-2.0); HEMATOCRIT 40.4 % (35.0-46.0); HEMO FLAGS DIFF FINAL; LYMPH % 21.5 % (9.0-44.0); LYMPHOCYTE # 1.8 TH/MM3 (1.0-4.8); MEAN CELL VOLUME 89.3 FL (80.0-100.0); MEAN CORPUSCULAR HEMOGLOBIN 30.3 PG (27.0-34.0); MEAN CORPUSCULAR HGB CONC 33.9 % (32.0-36.0); MONO % 2.8 % (0.0-8.0); NEUT % 75.3 % (16.0-70.0); PLATELET COUNT 606 TH/MM3 (150-450); RED BLOOD COUNT 4.53 MIL/MM3 (4.00-5.30); RED CELL DISTRIBUTION WIDTH 13.1 % (11.6-17.2); WHITE BLOOD COUNT 8.2 TH/MM3 (4.0-11.0)
[2017-04-28 17:54] LABS: APTT (PATIENT) 26.9 SEC (24.3-30.1); PROTHROMBIN TIME - PATIENT 10.6 SEC (9.8-11.6)
[2017-04-28] MEDS ORDERED: IOHEXOL 350 MG/ML 10 ML VIAL (for RAD DIAG) IVCONTRAST ONE (18:00)
[2017-04-28 18:03] LABS: ALT (GPT) 16 U/L (10-53); ANION GAP 9 MEQ/L (5-15); AST (GOT) 14 U/L (15-37); BICARBONATE 23.6 MEQ/L (21.0-32.0); BLOOD UREA NITROGEN 10 MG/DL (7-18); CHLORIDE 104 MEQ/L (98-107); GLOMERULAR FILTRATION RATE 133 ML/MIN (>89); POTASSIUM 3.9 MEQ/L (3.5-5.1); SODIUM (NA) 137 MEQ/L (136-145)
[2017-04-28 18:07] LABS: ALKALINE PHOSPHATASE 102 U/L (45-117); TOTAL BILIRUBIN ADULT 0.3 MG/DL (0.2-1.0)
[2017-04-28 18:08] LABS: CREATINE KINASE 34 U/L (26-192)
[2017-04-28 18:16] VITALS: BP 170/82; PULSE 67; RESP 17; TEMP 97.8; O2SAT 100
--- NOTE | 2017-04-28 18:23 | RADRPT ---
EXAM DATE/TIME: 04/28/2017 17:51 [facility] COMPARISON: No previous studies available for comparison. INDICATIONS : Chest pain and vomiting. IV CONTRAST: 80 cc Omnipaque 350 (iohexol) IV RADIATION DOSE: 23.22 CTDIvol (mGy) MEDICAL HISTORY : None SURGICAL HISTORY : breast implants ENCOUNTER: Initial ACUITY: 1 day PAIN SCALE: 7/10 LOCATION: Bilateral chest TECHNIQUE: Volumetric scanning of the chest was performed using a pulmonary embolism protocol MIP images were re constructed. Using automated exposure control and adjustment of the mA and/or kV according to patien t size, radiation dose was kept as low as reasonably achievable to obtain optimal diagnostic quality images. DICOM format image data is available electronically for review and comparison. Follow-up recommendations for detected pulmonary nodules are based at a minimum on nodule size and pa tient risk factors according to Fleischner Society Guidelines. FINDINGS: PULMONARY ARTERIES: No filling defects are seen in the pulmonary arteries through the segmental level. LUNGS: There is a 6 mm nodule in the lateral costophrenic sulcus on the left. No evidence of infiltrate. PLEURAE: There is no pleural thickening or pleural effusion. MEDIASTINUM: There is good visualization of the great vessels of the middle mediastinum. No evidence of mediastin al or hilar adenopathy/mass. MUSCULOSKELETAL: Within normal limits for patient age. MISCELLANEOUS: The visualized upper abdominal organs demonstrate no acute abnormality. CONCLUSION: No evidence of pulmonary embolism. Tiny left lung base nodule can be followed as appropriate Yamil Leroy MD on April 28, 2017 at 18:16 Board Certified Radiologist. This report was verified electronically.
[2017-04-28] MEDS ORDERED: PROM25TA10 PO (18:34)
--- NOTE | 2017-04-28 18:35 | PD ---
HPI Chief Complaint: GI Complaint Time Seen by Provider: 16:29 Travel History International Travel<30 days: No Contact w/Intl Traveler<30days: No Traveled to known affect area: No History of Present Illness HPI PATIENT RECENTLY GAVE VIA C SECTION BECAUSE CHILD WAS BREECH. PT C/O N/V WHICH STARTED SINCE /POST C SECTION. DENIES AIKEN/CP/ABD PAIN/DIARRHEA/ FEVER PFSH Past Medical History Depression: Yes Diabetes: No Diminished Hearing: No Musculoskeletal: Yes (SCIATICA) Tetanus Vaccination: < 5 Years Influenza Vaccination: Yes ?: Not : 2 Para: 1 : 1 Past Surgical History Section: Yes Gynecologic Surgery: Yes (C- SECTION) Other Surgery: Yes (COSMETIC BREAST RECONSTRUCTION AND IMPLANTS 05/2006) Social History Alcohol Use: No Tobacco Use: No Substance Use: Yes Allergies-Medications (Allergen,Severity, Reaction): Coded Allergies: No Known Allergies (Verified , 04/28/17) Reported Meds & Prescriptions Reported Meds & Active Scripts Active Oxycodone-Acetaminophen 5-325 mg Tab 1 Tab PO Q4H PRN Senna Plus 8.6-50 mg (Sennosides-Docusate Sodium) 8.6 Mg-50 Mg Tab 2 Tab PO Q12H PRN Reported Klonopin (Clonazepam) 0.5 Mg Tab 0.5 Mg PO DAILY Review of Systems Except as stated in HPI: all other systems reviewed are Neg Gastrointestinal: Positive: Nausea, Vomiting Physical Exam Narrative GENERAL: SKIN: Warm and dry. HEAD: Atraumatic. Normocephalic. EYES: Pupils equal and round. No scleral icterus. No injection or drainage. ENT: No nasal bleeding or discharge. Mucous membranes pink and moist. NECK: Trachea midline. No JVD. CARDIOVASCULAR: Regular rate and rhythm. RESPIRATORY: No accessory muscle use. Clear to auscultation. Breath sounds equal bilaterally. GASTROINTESTINAL: Abdomen soft, non-tender, nondistended. MUSCULOSKELETAL: Extremities without clubbing, cyanosis, or edema. No obvious deformities. NEUROLOGICAL: Awake and alert. No obvious cranial nerve deficits. Motor grossly within normal limits. Five out of 5 muscle strength in the arms and legs. Normal speech. PSYCHIATRIC: Appropriate mood and affect; insight and judgment normal. Data Data Last Documented VS Vital Signs Date Time Temp Pulse Resp B/P (MAP) Pulse Ox O2 Delivery O2 Flow Rate FiO2 04/28/17 18:16 97.8 67 17 170/82 (111) 100 Room Air Orders Orders Electrocardiogram (04/28/17 16:30) Ckmb (Isoenzyme) Profile (04/28/17 16:30) Complete Blood Count With Diff (04/28/17 16:30) Comprehensive Metabolic Panel (04/28/17 16:30) Prothrombin Time / Inr (Pt) (04/28/17 16:30) Act Partial Throm Time (Ptt) (04/28/17 16:30) Troponin I (04/28/17 16:30) Lipase (04/28/17 16:30) Chest, Single Ap (04/28/17 16:30) Ecg Monitoring (04/28/17 16:30) Bilateral Bp Monitoring (04/28/17 16:30) Iv Access Insert/Monitor (04/28/17 16:30) Oximetry (04/28/17 16:30) Oxygen Administration (04/28/17 16:30) Sodium Chloride 0.9% Flush (Ns Flush) (04/28/17 16:30) Sodium Chlorid 0.9% 500 Ml Inj (Ns 500 M (04/28/17 16:30) Ct Pulmonary Angiogram (04/28/17 16:30) Al-Mag Hy-Si 40-40-4 Mg/Ml Liq (Mag-Al P (04/28/17 16:30) Lidocaine 2% Viscous (Xylocaine 2% Visco (04/28/17 16:30) Promethazine Inj (Phenergan Inj) (04/28/17 16:45) Sodium Chlor 0.9% 1000 Ml Inj (Ns 1000 M (04/28/17 16:45) Iohexol 350 Inj (Omnipaque 350 Inj) (04/28/17 18:00) Labs Laboratory Tests Test 04/28/17 16:50 White Blood Count 8.2 TH/MM3 Red Blood Count 4.53 MIL/MM3 Hemoglobin 13.7 GM/DL Hematocrit 40.4 % Mean Corpuscular Volume 89.3 FL Mean Corpuscular Hemoglobin 30.3 PG Mean Corpuscular Hemoglobin Concent 33.9 % Red Cell Distribution Width 13.1 % Platelet Count 606 TH/MM3 Mean Platelet Volume 8.9 FL Neutrophils (%) (Auto) 75.3 % Lymphocytes (%) (Auto) 21.5 % Monocytes (%) (Auto) 2.8 % Eosinophils (%) (Auto) 0.0 % Basophils (%) (Auto) 0.4 % Neutrophils # (Auto) 6.1 TH/MM3 Lymphocytes # (Auto) 1.8 TH/MM3 Monocytes # (Auto) 0.2 TH/MM3 Eosinophils # (Auto) 0.0 TH/MM3 Basophils # (Auto) 0.0 TH/MM3 CBC Comment DIFF FINAL Differential Comment Prothrombin Time 10.6 SEC Prothromb Time International Ratio 1.0 RATIO Activated Partial Thromboplast Time 26.9 SEC Blood Urea Nitrogen 10 MG/DL Creatinine 0.54 MG/DL Random Glucose 81 MG/DL Total Protein 8.4 GM/DL Albumin 3.2 GM/DL Calcium Level 9.2 MG/DL Alkaline Phosphatase 102 U/L Aspartate Amino Transf (AST/SGOT) 14 U/L Alanine Aminotransferase (ALT/SGPT) 16 U/L Total Bilirubin 0.3 MG/DL Sodium Level 137 MEQ/L Potassium Level 3.9 MEQ/L Chloride Level 104 MEQ/L Carbon Dioxide Level 23.6 MEQ/L Anion Gap 9 MEQ/L Estimat Glomerular Filtration Rate 133 ML/MIN Total Creatine Kinase 34 U/L Troponin I LESS THAN 0.02 NG/ML Lipase 117 U/L MDM Medical Decision Making Medical Screen Exam Complete: Yes Emergency Medical Condition: Yes Medical Record Reviewed: Yes Differential Diagnosis LIVER DZ V PANCREATITIS V PE Narrative Course NO E/O PE, NL LFT'S, NL LIPASE, NL H/H AND NO LEUKOCYTOSIS Diagnosis Primary Impression: VOMITING Patient Instructions: Acute Nausea and Vomiting (ED), General Instructions Scripts Promethazine (Phenergan) 25 Mg Tablet 25 MG PO Q6H Y for NAUSEA OR VOMITING, #12 TAB 0 Refills Prov: Reg Cisneros MD 04/28/17 Disposition: 01 DISCHARGE HOME Condition: Stable Reg Cisneros MD Apr 28, 2017 18:35
[2017-04-28 18:45] VITALS: BP 150/83; TEMP 97.8
--- NOTE | 2017-04-29 05:58 | EKG ---
Date Performed: 04/28/2017 Time Performed: 16:42:00 PTAGE: 32 years EKG: Sinus rhythm NORMAL ECG INTERPRETATION BASED ON A DEFAULT AGE OF 42 YEARS PREVIOUS TRACING : 03/26/2004 16.15 DOCTOR: Gurvinder Pace Interpretating Date/Time 04/29/2017 05:55:29
[2017-05-08] MEDS ORDERED: CEFT250I IM (09:42)
== END 2017-04-28 18:45 | disposition home or self-care (01) ==
LOC: NEPE 15:46
DX: R11.2 Nausea with vomiting, unspecified (principal); R07.9 Chest pain, unspecified
CPT/HCPCS: 71010; 71275; 80053; 82550; 83690; 84484; 85025; 85610; 85730; 93005; 96360; 96372; 99285; J2550; J7030; J7040; Q9967

== ENCOUNTER 2017-08-14 17:12 | Emergency (ER) | payer MEDICAID ==
[~2017-08-14] VITALS: Ht 165.1 cm; Wt 84.1 kg
[~2017-08-14 17:12] MED LIST changes: -IBUP-232 PO; +PROM25TA10 PO
[2017-08-14] MEDS ORDERED: IOHEXOL 350 MG/ML 10 ML VIAL (for RAD DIAG) IVCONTRAST ONE (17:13)
[2017-08-14 17:15] VITALS: BP 124/72; PULSE 102; RESP 16; TEMP 97.9; O2SAT 97
--- NOTE | 2017-08-14 18:28 | PD ---
HPI Chief Complaint: Abdominal Pain Time Seen by Provider: 18:01 Travel History International Travel<30 days: No Contact w/Intl Traveler<30days: No Traveled to known affect area: No History of Present Illness HPI 32-year-old female presents to the emergency Department with complaint of difficulty urinating and decreased urination for greater than a week. Denies dysuria. Denies hematuria. Reports low back pain. She was seen at the health department within the past week and had a pelvic exam, and was tested for STDs which were negative, urinalysis which was negative also and was sent for an ultrasound of her left lower quadrant secondary to left lower quadrant/pelvic pain. The ultrasound was done on August 02, 2017 and a concluded hypoechoic mass involving the lower anterior uterus possibly related to lipoma; This could also be postsurgical. Patient had a in March 2017. She has had continued left lower quadrant abdominal pain and the pain is now generalized to the entire abdomen. Denies fever. Reports vomiting 2 days ago and has not vomited since. Denies diarrhea. Her last bowel movement was 4-5 days ago and she says this is normal for her. Denies history of other abdominal surgeries, besides the . Denies abnormal vaginal discharge. Last menstrual period was last July,. Also reports feeling bloated. Reports bilateral lower extremity edema 2 days. She tried taking is to for 2 days with good relief of urinary symptoms. No previous antibiotic therapy. No known relieving or aggravating factors. Patient is on methadone and goes to the clinic. She has history of IV drug abuse and has not injected for 8-9 months. Rates pain 8/10. Describes it as a pressure. No known allergies. Does not have a primary care provider. Denies significant past medical history. Has no other medical complaints. No other modifying factors or associated signs and symptoms. PFSH Past Medical History Depression: Yes Diabetes: No Diminished Hearing: No Musculoskeletal: Yes (SCIATICA) ?: Not : 2 Para: 1 : 1 Past Surgical History Section: Yes Gynecologic Surgery: Yes (C- SECTION) Other Surgery: Yes (COSMETIC BREAST RECONSTRUCTION AND IMPLANTS 05/2006) Social History Alcohol Use: No Tobacco Use: No Substance Use: Yes Allergies-Medications (Allergen,Severity, Reaction): Coded Allergies: No Known Allergies (Verified Adverse Reaction, Unknown, 1/23/18) Reported Meds & Prescriptions Reported Meds & Active Scripts Active Phenergan (Promethazine HCl) 25 Mg Tablet 25 Mg PO Q6H PRN Oxycodone-Acetaminophen 5-325 mg Tab 1 Tab PO Q4H PRN Senna Plus 8.6-50 mg (Sennosides-Docusate Sodium) 8.6 Mg-50 Mg Tab 2 Tab PO Q12H PRN Reported Klonopin (Clonazepam) 0.5 Mg Tab 0.5 Mg PO DAILY Review of Systems Except as stated in HPI: all other systems reviewed are Neg Physical Exam Narrative GENERAL: Well-nourished, well-developed female patient, in no acute distress; afebrile SKIN: Warm and dry. HEAD: Atraumatic. Normocephalic. EYES: Pupils equal and round. No scleral icterus. No injection or drainage. ENT: Mucosa pink and moist. Airway patent. NECK: Trachea midline. CARDIOVASCULAR: Regular rate and rhythm. No murmur appreciated. Bilateral lower extremity with nonpitting edema. RESPIRATORY: No accessory muscle use. Clear to auscultation. Breath sounds equal bilaterally. GASTROINTESTINAL: Abdomen soft, patient is tender all over on palpation of the abdomen, left lower quadrant abdominal tenderness, nondistended. Hepatic and splenic margins not palpable. Bowel sounds are active 4 quadrants. Nonrigid. No rebound tenderness. No guarding. BACK: Left CVA tenderness. No midline tenderness on palpation of the lumbar, thoracic spine. MUSCULOSKELETAL: No obvious deformities. No clubbing. No cyanosis. BACK: No CVA tenderness. No rash. No point tenderness on palpation of the spine. NEUROLOGICAL: Awake and alert. Oriented 3. No obvious cranial nerve deficits. Motor grossly within normal limits. Normal speech. PSYCHIATRIC: Appropriate mood and affect; insight and judgment normal. Data Data Last Documented VS Vital Signs Date Time Temp Pulse Resp B/P (MAP) Pulse Ox O2 Delivery O2 Flow Rate FiO2 08/14/17 21:32 08/14/17 19:25 90 16 100 Room Air 08/14/17 17:15 97.9 Orders Orders Complete Blood Count With Diff (08/14/17 18:18) Comprehensive Metabolic Panel (08/14/17 18:18) Lipase (08/14/17 18:18) Prothrombin Time / Inr (Pt) (08/14/17 18:18) Act Partial Throm Time (Ptt) (08/14/17 18:18) Urinalysis - C+S If Indicated (08/14/17 18:18) Ct Abd/Pel W Iv Contrast(Rout) (08/14/17 18:18) Iv Access Insert/Monitor (08/14/17 18:18) Ecg Monitoring (08/14/17 18:18) Oximetry (08/14/17 18:18) Sodium Chloride 0.9% Flush (Ns Flush) (08/14/17 18:30) Chest, Single Ap (08/14/17 18:18) Ketorolac Inj (Toradol Inj) (08/14/17 18:30) Ed Urine Pregnancytest Poc (08/14/17 18:18) Urine Culture (08/14/17 19:00) Iohexol 350 Inj (Omnipaque 350 Inj) (08/14/17 17:13) Labs Laboratory Tests Test 08/14/17 19:00 White Blood Count 5.0 TH/MM3 Red Blood Count 4.16 MIL/MM3 Hemoglobin 12.5 GM/DL Hematocrit 37.0 % Mean Corpuscular Volume 89.1 FL Mean Corpuscular Hemoglobin 30.1 PG Mean Corpuscular Hemoglobin Concent 33.8 % Red Cell Distribution Width 13.8 % Platelet Count 402 TH/MM3 Mean Platelet Volume 8.2 FL Neutrophils (%) (Auto) 48.7 % Lymphocytes (%) (Auto) 39.5 % Monocytes (%) (Auto) 9.8 % Eosinophils (%) (Auto) 1.5 % Basophils (%) (Auto) 0.5 % Neutrophils # (Auto) 2.4 TH/MM3 Lymphocytes # (Auto) 2.0 TH/MM3 Monocytes # (Auto) 0.5 TH/MM3 Eosinophils # (Auto) 0.1 TH/MM3 Basophils # (Auto) 0.0 TH/MM3 CBC Comment DIFF FINAL Differential Comment Prothrombin Time 10.5 SEC Prothromb Time International Ratio 1.0 RATIO Activated Partial Thromboplast Time 28.6 SEC Urine Color YELLOW Urine Turbidity HAZY Urine pH 6.5 Urine Specific [place] 1.017 Urine Protein TRACE mg/dL Urine Glucose (UA) NEG mg/dL Urine Ketones 10 mg/dL Urine Occult Blood NEG Urine Nitrite NEG Urine Bilirubin NEG Urine Urobilinogen LESS THAN 2.0 MG/DL Urine Leukocyte Esterase LARGE Urine RBC 3 /hpf Urine WBC 45 /hpf Urine Squamous Epithelial Cells 32 /hpf Urine Mucus FEW /lpf Urine Yeast with Hyphae FEW Urine Yeast (Budding) FEW Microscopic Urinalysis Comment CULTURE INDICATED Blood Urea Nitrogen 7 MG/DL Creatinine 0.61 MG/DL Random Glucose 66 MG/DL Total Protein 7.6 GM/DL Albumin 3.2 GM/DL Calcium Level 9.5 MG/DL Alkaline Phosphatase 84 U/L Aspartate Amino Transf (AST/SGOT) 67 U/L Alanine Aminotransferase (ALT/SGPT) 51 U/L Total Bilirubin 0.4 MG/DL Sodium Level 138 MEQ/L Potassium Level 4.4 MEQ/L Chloride Level 103 MEQ/L Carbon Dioxide Level 27.6 MEQ/L Anion Gap 7 MEQ/L Estimat Glomerular Filtration Rate 115 ML/MIN Lipase 66 U/L MDM Medical Decision Making Medical Screen Exam Complete: Yes Emergency Medical Condition: Yes Medical Record Reviewed: Yes Differential Diagnosis Pyelonephritis, UTI, kidney failure Narrative Course 32-year-old female with lower abdominal pain, oliguria, and low back pain for greater than 1 week. Was seen at the health department and had STD screening and all was negative, per patient. Was sent for lower quadrant abdominal ultrasound on August 02, 2017 and the patient brought in to report and report concludes hypoechoic mass involving the lower anterior uterus possibly related to light,; this could also be postsurgical. Patient is 3 months post from March 2017. Patient goes to the methadone clinic and she has not used IV drugs for the past 8-9 months. IV site, CT abdomen/pelvis, CBC, CMP, lipase , coags, urinalysis, UPT, Toradol ordered. 1900: Report given to GAVINO Campbell at change of shift. See her not for final patient disposition. Jaycee Tafoya Aug 14, 2017 18:28
[2017-08-14] MEDS ORDERED: SODIUM CHLORIDE 0.9% FLUSH 10 ML FLUSH IV FLUSH PRN (18:30)
[2017-08-14] MEDS ORDERED: KETOROLAC TROMETHAMINE 30 MG/ML (IVP) VIAL IVP ONE (18:30)
--- NOTE | 2017-08-14 19:16 | RADRPT ---
EXAM DATE/TIME: 08/14/2017 18:37 [facility] COMPARISON: No previous studies available for comparison. INDICATIONS : Chest pain shortness of breath. MEDICAL HISTORY : None. SURGICAL HISTORY : None. ENCOUNTER: Initial ACUITY: 1 day PAIN SCORE: 5/10 LOCATION: Bilateral chest FINDINGS: A single view of the chest demonstrates the lungs to be symmetrically aerated without evidence of mas s, infiltrate or effusion. The cardiomediastinal contours are unremarkable. Osseous structures are intact. CONCLUSION: 1. No active disease. Preston Ambriz MD on August 14, 2017 at 19:13 Board Certified Radiologist. This report was verified electronically.
[2017-08-14 19:24] VITALS: O2SAT 100
[2017-08-14 19:25] VITALS: BP 122/76; PULSE 90; RESP 16; O2SAT 100
[2017-08-14 19:36] LABS: AUTOMATED NEUTROPHIL # 2.4 TH/MM3 (1.8-7.7); BASOPHIL % 0.5 % (0.0-2.0); EOSINOPHIL # 0.1 TH/MM3 (0-0.4); EOSINOPHIL % 1.5 % (0.0-4.0); HEMOGLOBIN 12.5 GM/DL (11.6-15.3); LYMPH % 39.5 % (9.0-44.0); MEAN CELL VOLUME 89.1 FL (80.0-100.0); MEAN CORPUSCULAR HEMOGLOBIN 30.1 PG (27.0-34.0); MEAN CORPUSCULAR HGB CONC 33.8 % (32.0-36.0); MEAN PLATELET VOLUME 8.2 FL (7.0-11.0); MONO % 9.8 % (0.0-8.0); MONOCYTE # 0.5 TH/MM3 (0-0.9); NEUT % 48.7 % (16.0-70.0); PLATELET COUNT 402 TH/MM3 (150-450); RED BLOOD COUNT 4.16 MIL/MM3 (4.00-5.30); RED CELL DISTRIBUTION WIDTH 13.8 % (11.6-17.2)
[2017-08-14 19:43] LABS: PROTHROMBIN TIME - PATIENT 10.5 SEC (9.8-11.6)
[2017-08-14 19:56] LABS: ALBUMIN 3.2 GM/DL (3.4-5.0); ALT (GPT) 51 U/L (10-53); AST (GOT) 67 U/L (15-37); BICARBONATE 27.6 MEQ/L (21.0-32.0); BLOOD UREA NITROGEN 7 MG/DL (7-18); CALCIUM 9.5 MG/DL (8.5-10.1); CHLORIDE 103 MEQ/L (98-107); CREATININE 0.61 MG/DL (0.50-1.00); GLOMERULAR FILTRATION RATE 115 ML/MIN (>89); GLUCOSE,RANDOM 66 MG/DL (74-106); LIPASE 66 U/L (73-393); SODIUM (NA) 138 MEQ/L (136-145)
[2017-08-14 19:58] LABS: ALKALINE PHOSPHATASE 84 U/L (45-117); TOTAL BILIRUBIN ADULT 0.4 MG/DL (0.2-1.0); TOTAL PROTEIN 7.6 GM/DL (6.4-8.2)
[2017-08-14 20:30] LABS: BILIRUBIN, URINE NEG (NEG); BLOOD, URINE NEG (NEG); GLUCOSE,URINE NEG (NEG); KETONE, URINE 10 mg/dL (NEG); MUCUS URINE FEW /lpf (OCC); NITRITE,URINE NEG (NEG); PH, URINE 6.5 (5.0-8.5); SQUAMOUS EPITHELIAL CELL URINE 32 /hpf (0-5); URINE COLOR YELLOW (YELLW/STRAW); URINE LEUKOCYTE ESTERASE LARGE (NEG)
--- NOTE | 2017-08-14 21:21 | RADRPT ---
EXAM DATE/TIME: 08/14/2017 20:37 [facility] COMPARISON: No previous studies available for comparison. INDICATIONS : Patient complains of decreased urination, vomiting , back pain. IV CONTRAST: 50 cc Omnipaque 350 (iohexol) IV ORAL CONTRAST: No oral contrast ingested. RADIATION DOSE: 6.87 CTDIvol (mGy) MEDICAL HISTORY : None SURGICAL HISTORY : Tubal ligation. ENCOUNTER: Initial ACUITY: 1 day PAIN SCALE: 7/10 LOCATION: lower quadrant abdomen TECHNIQUE: Volumetric scanning of the abdomen and pelvis was performed. Using automated exposure control and ad justment of the mA and/or kV according to patient size, radiation dose was kept as low as reasonably achievable to obtain optimal diagnostic quality images. DICOM format image data is available electro nically for review and comparison. FINDINGS: Lung bases are clear except for minimal dependent atelectasis. No acute findings in the liver, spleen , adrenals, kidneys or pancreas. Calcified gallstones. No free fluid. No bowel obstruction. No adenopathy. No acute bony abnormalities. CONCLUSION: 1. No acute findings on abdomen and pelvic CT. Preston Ambriz MD on August 14, 2017 at 21:15 Board Certified Radiologist. This report was verified electronically.
--- NOTE | 2017-08-15 01:49 | PD ---
Physical Exam Date Seen by Provider: Aug 15, 2017 Time Seen by Provider: 01:47 Narrative For full history and physical examination please see previous provider's note. Data Data Last Documented VS Vital Signs Date Time Temp Pulse Resp B/P (MAP) Pulse Ox O2 Delivery O2 Flow Rate FiO2 08/14/17 21:32 08/14/17 19:25 90 16 100 Room Air 08/14/17 17:15 97.9 Orders Orders Complete Blood Count With Diff (08/14/17 18:18) Comprehensive Metabolic Panel (08/14/17 18:18) Lipase (08/14/17 18:18) Prothrombin Time / Inr (Pt) (08/14/17 18:18) Act Partial Throm Time (Ptt) (08/14/17 18:18) Urinalysis - C+S If Indicated (08/14/17 18:18) Ct Abd/Pel W Iv Contrast(Rout) (08/14/17 18:18) Iv Access Insert/Monitor (08/14/17 18:18) Ecg Monitoring (08/14/17 18:18) Oximetry (08/14/17 18:18) Sodium Chloride 0.9% Flush (Ns Flush) (08/14/17 18:30) Chest, Single Ap (08/14/17 18:18) Ketorolac Inj (Toradol Inj) (08/14/17 18:30) Ed Urine Pregnancytest Poc (08/14/17 18:18) Urine Culture (08/14/17 19:00) Iohexol 350 Inj (Omnipaque 350 Inj) (08/14/17 17:13) Labs Laboratory Tests Test 08/14/17 19:00 White Blood Count 5.0 TH/MM3 Red Blood Count 4.16 MIL/MM3 Hemoglobin 12.5 GM/DL Hematocrit 37.0 % Mean Corpuscular Volume 89.1 FL Mean Corpuscular Hemoglobin 30.1 PG Mean Corpuscular Hemoglobin Concent 33.8 % Red Cell Distribution Width 13.8 % Platelet Count 402 TH/MM3 Mean Platelet Volume 8.2 FL Neutrophils (%) (Auto) 48.7 % Lymphocytes (%) (Auto) 39.5 % Monocytes (%) (Auto) 9.8 % Eosinophils (%) (Auto) 1.5 % Basophils (%) (Auto) 0.5 % Neutrophils # (Auto) 2.4 TH/MM3 Lymphocytes # (Auto) 2.0 TH/MM3 Monocytes # (Auto) 0.5 TH/MM3 Eosinophils # (Auto) 0.1 TH/MM3 Basophils # (Auto) 0.0 TH/MM3 CBC Comment DIFF FINAL Differential Comment Prothrombin Time 10.5 SEC Prothromb Time International Ratio 1.0 RATIO Activated Partial Thromboplast Time 28.6 SEC Urine Color YELLOW Urine Turbidity HAZY Urine pH 6.5 Urine Specific [place] 1.017 Urine Protein TRACE mg/dL Urine Glucose (UA) NEG mg/dL Urine Ketones 10 mg/dL Urine Occult Blood NEG Urine Nitrite NEG Urine Bilirubin NEG Urine Urobilinogen LESS THAN 2.0 MG/DL Urine Leukocyte Esterase LARGE Urine RBC 3 /hpf Urine WBC 45 /hpf Urine Squamous Epithelial Cells 32 /hpf Urine Mucus FEW /lpf Urine Yeast with Hyphae FEW Urine Yeast (Budding) FEW Microscopic Urinalysis Comment CULTURE INDICATED Blood Urea Nitrogen 7 MG/DL Creatinine 0.61 MG/DL Random Glucose 66 MG/DL Total Protein 7.6 GM/DL Albumin 3.2 GM/DL Calcium Level 9.5 MG/DL Alkaline Phosphatase 84 U/L Aspartate Amino Transf (AST/SGOT) 67 U/L Alanine Aminotransferase (ALT/SGPT) 51 U/L Total Bilirubin 0.4 MG/DL Sodium Level 138 MEQ/L Potassium Level 4.4 MEQ/L Chloride Level 103 MEQ/L Carbon Dioxide Level 27.6 MEQ/L Anion Gap 7 MEQ/L Estimat Glomerular Filtration Rate 115 ML/MIN Lipase 66 U/L [facility] Medical Record Reviewed: Yes Supervised Visit with OPAL: No Narrative Course While awaiting results of CT scan patient told RN that she was tired of waiting and wanted to leave. Before RN could notify provider patient had eloped from the emergency department. Diagnosis Primary Impression: Left against medical advice Patient Instructions: General Instructions Departure Forms: Tests/Procedures Disposition: 07 AGAINST MEDICAL ADVICE Condition: Stable WesLayla Aug 15, 2017 01:49
== END 2017-08-14 21:45 | disposition left against medical advice (07) ==
LOC: NEPD 17:12
DX: R10.30 Lower abdominal pain, unspecified (principal); R34 Anuria and oliguria; M54.5 Low back pain; F32.9 Major depressive disorder, single episode, unspecified; Z53.20 Procedure and treatment not carried out because of patient's decision for unspecified reasons
CPT/HCPCS: 71045; 74177; 80053; 81001; 83690; 84703; 85025; 85610; 85730; 87086; 96374; 99285; J1885; Q9967